=== PATIENT | female | born 1990 | race Caucasian/White ===

== ENCOUNTER 2017-03-31 22:42 | Emergency (ER) | payer MEDICAID ==
[~2017-03-31] VITALS: Ht 162.6 cm; Wt 86.2 kg
[2017-03-31 22:44] VITALS: BP_SYST 128
--- NOTE | 2017-03-31 22:44 | NUR ---
Placed in room 05 . Placed on steward/stewardess second, blood pressure machine and pulse oximeter. To gown for exam. Side rails up. Report given to BRY Holliday.
--- NOTE | 2017-03-31 22:50 | NUR ---
Patient to ER C/O "lump" between her breats for the past 2 years. Patient states that "it comes and goes, worse after workouts" Small swelling above sternum, under the skin, no reddness noted, pain to touch. AAOx4, unlabored breathing, no signs of acute distress.
--- NOTE | 2017-03-31 23:20 | NUR ---
ER MD Espinoza at bedside for evaluation
[2017-03-31 23:52] VITALS: BP_SYST 122
--- NOTE | 2017-03-31 23:52 | NUR ---
Patient given written and verbal discharge instructions and verbalizes understanding. ER MD DALE discussed with patient the results and treatment provided. Patient in stable condition. ID arm band removed. Rx of TRAMADOL given. Patient educated on pain management and to follow up with PMD. Pain Scale 0/10. Opportunity for questions provided and answered.
== END 2017-03-31 23:52 | disposition home or self-care (01) ==
LOC: SED 22:42
DX: R22.2 Localized swelling, mass and lump, trunk (principal)
CPT/HCPCS: 81025; 99283